=== PATIENT | male | born 1960 | race African-American/Black ===

== ENCOUNTER 2021-08-29 21:38 | Inpatient (IN) | payer BC ==
[2021-08-29 22:22] LABS: Hemoglobin 10.2 g/dL (13.5-17.5); Mean Corpuscular HGB CONC 31.4 g/dL (32.0-36.0); Mean Corpuscular Hemoglobin 25.8 pg (27.0-33.0); Mean Corpuscular Volume 82.3 fl (81.2-95.1); Mean Platelet Volume 11.6 fl (7.4-10.4); Platelet Count 259 10x3/uL (150-450); RBC Distribution Width 16.3 % (11.5-14.5); Red Blood Cell (RBC) Count 3.95 10x6/uL (4.32-5.72); White Blood Cell (WBC) Count 16.1 10x3/uL (3.5-10.5)
[2021-08-29 22:32] LABS: ALT (SGPT) 21 U/L (8-55); AST (SGOT) 28 U/L (5-34); Albumin 2.4 g/dL (3.4-4.8); Alkaline Phosphatase 63 U/L (40-110); Anion Gap 20 mmol/L (10-20); Bilirubin, Total 0.3 mg/dL (0.2-1.2); CK (CPK) 1000 U/L (30-200); Calc. Creatinine Clearance 0 mL/min (70-130); Calcium 7.7 mg/dL (7.8-10.44); Carbon Dioxide 14 mmol/L (23-31); Chloride 105 mmol/L (98-107); Estimated GFR 4; Globulin 2.9 g/dL (2.4-3.5); Glucose 373 mg/dL (80-115); Lipase 31 U/L (8-78); Protein, Total 5.3 g/dL (5.8-8.1); Sodium 132 mmol/L (136-145)
[2021-08-29 22:34] LABS: Potassium 7.3 mmol/L (3.5-5.1)
[2021-08-29 22:41] LABS: BUN (Urea Nitrogen) 158 mg/dL (8.4-25.7)
[2021-08-29 22:55] LABS: CKMB 23.2 ng/mL (0-6.6)
[2021-08-29 22:59] LABS: MDiff Complete? YES
[2021-08-29 23:02] LABS: Band 24 % (5-11); Lymphocytes 5 % (21-51); Monocytes 9 % (0-10); Neutrophil 62 % (42-75)
[2021-08-29 23:03] LABS: Platelet Morphology Comment Appears Adequate; RBC Morphology Normal
[2021-08-29 23:06] LABS: Actual Bicarbonate (HCO3v) 12 mEq/L (22-28); Base Excess -14.9 mEq/L (-2.0 to +3.0); Calcium, Ionized (venous) 1.15 mmol/L (1.16-1.32); Chloride (VBG) 115 mmol/L (98-106); Critical Notified Whom: SPOMI; Hemoglobin (Hb) 10.5 g/dL (13.1-17.2); Potassium (VBG) 7.87 mmol/L (3.70-5.30); Puncture Site Other Site; Sodium 144.3 mmol/L (133-146); pH (venous) 7.19 (7.32-7.43)
[2021-08-29] MEDS ORDERED: Calcium Chloride 1 GM/10 ML Abboject SYRINGE ONE (23:14)
[2021-08-29] MEDS ORDERED: Sodium Bicarb 50 MEQ/50 ML VIAL ONE (23:15)
[2021-08-29] MEDS ORDERED: Insulin Regular 300 UNITS/3 ML VIAL ONE (23:15)
[2021-08-29 23:26] LABS: SARS-CoV-2 NAA Rapid Test DETECTED (NotDetected)
[2021-08-29] MEDS ORDERED: Pantoprazole 40 MG VIAL ONE (23:44)
[2021-08-29] MEDS ORDERED: Cefepime 2 GM VIAL ONE (23:44)
[2021-08-30 00:50] LABS: Hemoglobin 9.5 g/dL (13.5-17.5); Platelet Count 202 10x3/uL (150-450)
[2021-08-30] MEDS ORDERED: Ondansetron PF 4 MG/2 ML Vial IVP PRN (00:58)
[2021-08-30 01:14] LABS: BUN (Urea Nitrogen) 179 mg/dL (8.4-25.7); Magnesium 2.7 mg/dL (1.6-2.6)
[2021-08-30 01:21] LABS: Troponin I 0.063 ng/mL (< 0.028)
[2021-08-30 01:29] LABS: Phosphorus 9.6 mg/dL (2.3-4.7)
[2021-08-30 01:30] LABS: Anion Gap 25 mmol/L (10-20); Calc. Creatinine Clearance 0 mL/min (70-130); Calcium 10.3 mg/dL (7.8-10.44); Carbon Dioxide 18 mmol/L (23-31); Chloride 116 mmol/L (98-107); Estimated GFR 4; Glucose 373 mg/dL (80-115); Potassium 6.8 mmol/L (3.5-5.1); Sodium 152 mmol/L (136-145)
[2021-08-30 01:36] LABS: Hep B Surf Ag Non-Reactive S/CO (NonReactive)
[2021-08-30 01:41] VITALS: BMI 18.1
[2021-08-30 02:00] LABS: HBSAg Index 0.18 S/CO (0-0.99)
[2021-08-30] MEDS ORDERED: Sodium Chloride 0.9% 1,000 ML IV SCH (02:00)
[2021-08-30] MEDS ORDERED: Pantoprazole 40 MG VIAL IVP SCH (02:00)
[2021-08-30] MEDS: Pantoprazole 80 MG, Admixture Fee 1 EACH in Sodium Chloride 0.9% 100 ML IVPB SCH ×3 (02:30→13:47)
[2021-08-30] MEDS: niCARdipine 25 MG in Sodium Chloride 0.9% 250 ML 250 ML IVPB SCH ×2 (02:53→11:11)
[2021-08-30] MEDS: INSULIN REGULAR IVPB SCH (02:53)
[2021-08-30] MEDS: NACL IVPB SCH (02:53)
[2021-08-30] MEDS ORDERED: Haloperidol Lactate 5 MG/ML VIAL SLOW IVP SCH (03:15)
[2021-08-30 04:27] LABS: Actual Bicarbonate (HCO3a) 14.8 mEq/L (22-28); Base Excess (BEa) -10.2 mEq/L (-2.0 to +3.0); CO2 Tension 29.8 mmHg (35.0-45.0); Calcium, Ionized (arterial) 1.21 mmol/L (1.12-1.30); Carboxyhemoglobin (COHb) 0.3 gm% (0.0-3.0); Hemoglobin (Hb) 9.7 g/dL (14.0-18.0); O2 Tension (PaO2), arterial 96.6 mmHg (> 80.0); Potassium - ABG Lab 4.7 mmol/L (3.70-5.30); Puncture Site RRA; pH, Arterial 7.31 (7.35-7.45)
[2021-08-30 04:32] LABS: Lactic Acid 3.6 mmol/L (0.5-2.2)
[2021-08-30 06:04] LABS: Anion Gap 23 mmol/L (10-20); CK (CPK) 787 U/L (30-200); Calc. Creatinine Clearance 5 mL/min (70-130); Calcium 8.9 mg/dL (7.8-10.44); Carbon Dioxide 16 mmol/L (23-31); Chloride 116 mmol/L (98-107); Estimated GFR 4; Glucose 460 mg/dL (80-115); Magnesium 2.4 mg/dL (1.6-2.6); Potassium 5.4 mmol/L (3.5-5.1); Sodium 150 mmol/L (136-145)
[2021-08-30 06:15] LABS: BUN (Urea Nitrogen) 161 mg/dL (8.4-25.7)
[2021-08-30 06:45] LABS: #Neutrophils 3.5 10x3/uL (1.5-8.4); %Neutrophils 75.5 % (40.0-75.0); Hemoglobin 9.8 g/dL (13.5-17.5); Mean Corpuscular HGB CONC 31.1 g/dL (32.0-36.0); Mean Corpuscular Hemoglobin 25.5 pg (27.0-33.0); Mean Corpuscular Volume 81.8 fl (81.2-95.1); Mean Platelet Volume 10.7 fl (7.4-10.4); Platelet Count 173 10x3/uL (150-450); RBC Distribution Width 16.5 % (11.5-14.5); Red Blood Cell (RBC) Count 3.85 10x6/uL (4.32-5.72); White Blood Cell (WBC) Count 4.6 10x3/uL (3.5-10.5)
[2021-08-30 06:53] LABS: MDiff Complete? YES
[2021-08-30] MEDS ORDERED: Dextrose 5% in Water 1,000 ML IV SCH ×2 (07:15→16:16)
[2021-08-30 07:51] LABS: Band 29 % (5-11); Lymphocytes 10 % (21-51); Metamyelocyte 1 % (0-0); Monocytes 4 % (0-10); Myelocyte 1 % (0-0); Neutrophil 55 % (42-75)
[2021-08-30 07:53] LABS: Platelet Morphology Comment Appears Adequate
[2021-08-30 07:57] LABS: Anisocytosis SLIGHT = 6-15 cells (100X) (0-5/hpf); Hypochromia SLIGHT = 6-15 cells (100X) (0-5/hpf); Rouleaux Formation SLIGHT = 1-5 cells (100X) (None Seen)
[2021-08-30] MEDS: Heparin 5,000 UNITS/ML VIAL SC SCH ×3 (09:03→20:24)
[2021-08-30] MEDS ORDERED: Sodium Chloride 0.9% 250 ML 250 ML ONE (11:12)
[2021-08-30] MEDS ORDERED: Lactated Ringer's 500 ML IV SCH (12:30)
[2021-08-30 13:29] LABS: HBSAB Concentration Less than 8.00 mIU/mL; Hep B Core Total Ab Non-Reactive (NonReactive); Hep B Core Total Index 0.05 S/CO (0-0.79); Hep B Surf AB Non-Reactive (NonReactive); Hep C IgG Ab Non-Reactive (NonReactive); Hep C Index 0.08 S/CO (0-0.79)
[2021-08-30] MEDS ORDERED: Dextrose 5% in Water 1,000 ML IV PRN (15:14)
[2021-08-30 15:35] LABS: Anion Gap 20 mmol/L (10-20); Calc. Creatinine Clearance 6 mL/min (70-130); Calcium 8.9 mg/dL (7.8-10.44); Carbon Dioxide 21 mmol/L (23-31); Chloride 116 mmol/L (98-107); Estimated GFR 5; Glucose 83 mg/dL (80-115); Potassium 4.7 mmol/L (3.5-5.1); Sodium 152 mmol/L (136-145)
[2021-08-30 15:44] LABS: Body Fluid Source Dialysate Fluid; Tube # EDTA
[2021-08-30 15:45] LABS: BUN (Urea Nitrogen) 135 mg/dL (8.4-25.7)
[2021-08-30 15:45] LABS: Clarity Cloudy/Turbid (Clear)
[2021-08-30 15:46] LABS: BF Color White
[2021-08-30] MEDS: Dextrose 50% Abboject 50 ML SYRINGE SLOW IVP PRN (16:19)
[2021-08-30 16:37] LABS: BF Segmented Neutrophils 93 %; Cell Count Non Hematic 4 %; Lymphocytes 3 %
[2021-08-30 19:37] LABS: Hemoglobin A1c 8.7 % (4.0-6.0)
[2021-08-30] MEDS: Pantoprazole 40 MG VIAL IVP SCH (20:25)
[2021-08-30] MEDS: HumaLOG 300 UNITS/3 ML VIAL SC PRN ×2 (20:26→23:43)
[2021-08-31] MEDS: niCARdipine 25 MG in Sodium Chloride 0.9% 250 ML 250 ML IVPB SCH (00:42)
[2021-08-31] MEDS: HumaLOG 300 UNITS/3 ML VIAL SC PRN ×4 (04:16→21:01)
[2021-08-31 04:21] LABS: Anion Gap 20 mmol/L (10-20); BUN (Urea Nitrogen) 123 mg/dL (8.4-25.7); Calc. Creatinine Clearance 6 mL/min (70-130); Calcium 8.4 mg/dL (7.8-10.44); Carbon Dioxide 19 mmol/L (23-31); Chloride 110 mmol/L (98-107); Estimated GFR 6; Glucose 388 mg/dL (80-115); Sodium 145 mmol/L (136-145)
[2021-08-31 04:29] LABS: Hemoglobin 9.2 g/dL (13.5-17.5); Mean Corpuscular HGB CONC 31.8 g/dL (32.0-36.0); Mean Corpuscular Hemoglobin 25.4 pg (27.0-33.0); Mean Corpuscular Volume 79.8 fl (81.2-95.1); Mean Platelet Volume 11.9 fl (7.4-10.4); Platelet Count 206 10x3/uL (150-450); RBC Distribution Width 16.3 % (11.5-14.5); Red Blood Cell (RBC) Count 3.62 10x6/uL (4.32-5.72); White Blood Cell (WBC) Count 9.6 10x3/uL (3.5-10.5)
[2021-08-31] MEDS: Heparin 5,000 UNITS/ML VIAL SC SCH ×3 (08:05→21:00)
[2021-08-31] MEDS: Pantoprazole 40 MG VIAL IVP SCH ×2 (08:06→21:00)
[2021-08-31] MEDS ORDERED: Pantoprazole 40 MG VIAL IVP SCH (09:00)
[2021-08-31] MEDS: INSULIN REGULAR IVPB SCH (09:12)
[2021-08-31] MEDS: NACL IVPB SCH (09:12)
[2021-08-31] MEDS ORDERED: GENTAMICIN FS SCH ×2 (12:00)
[2021-08-31] MEDS ORDERED: HEPARIN FS SCH ×2 (12:00)
[2021-08-31] MEDS ORDERED: [UNRECOGNIZED DRUG - OTHER] FS SCH (12:00)
[2021-08-31] MEDS ORDERED: CEFAZOLIN FS SCH ×2 (12:00)
[2021-08-31] MEDS ORDERED: [UNRECOGNIZED DRUG - OTHER] FS SCH (12:00)
[2021-08-31] MEDS ORDERED: Amlodipine 10 MG TAB PO SCH (13:00)
[2021-08-31] MEDS ORDERED: Heparin 10,000 UNITS/ 10 ML VIAL FS PRN (13:21)
[2021-08-31] MEDS ORDERED: Lantus 1000 UNITS/10 ML VIAL SC SCH (15:00)
[2021-08-31] MEDS ORDERED: Vancomycin 1 GM in Premix Bag 1 BAG IVPB PRN (23:30)
[2021-09-01] MEDS: hydrALAZINE 20 MG/ML VIAL SLOW IVP PRN ×2 (00:12→10:44)
[2021-09-01] MEDS: HumaLOG 300 UNITS/3 ML VIAL SC PRN ×4 (00:12→21:45)
[2021-09-01] MEDS: Cefepime 2 GM in Sodium Chloride 0.9% 100 ML IVPB SCH (00:13)
[2021-09-01 05:26] LABS: Anion Gap 16 mmol/L (10-20); BUN (Urea Nitrogen) 92 mg/dL (8.4-25.7); Calc. Creatinine Clearance 8 mL/min (70-130); Calcium 8.5 mg/dL (7.8-10.44); Carbon Dioxide 26 mmol/L (23-31); Chloride 104 mmol/L (98-107); Estimated GFR 8; Glucose 405 mg/dL (80-115); Potassium 3.8 mmol/L (3.5-5.1); Sodium 142 mmol/L (136-145)
[2021-09-01] MEDS: Pantoprazole 40 MG VIAL IVP SCH (08:53)
[2021-09-01] MEDS: cloNIDine 0.1 MG TAB PO SCH ×2 (08:53→20:56)
[2021-09-01] MEDS: Amlodipine 10 MG TAB PO SCH (08:53)
[2021-09-01] MEDS: Heparin 5,000 UNITS/ML VIAL SC SCH ×3 (08:53→20:57)
[2021-09-01 12:53] LABS: Vancomycin, Random 15.1 ug/mL (See Comment)
[2021-09-01] MEDS: hydrALAZINE 25 MG TAB PO SCH ×2 (13:58→20:56)
[2021-09-01] MEDS ORDERED: Vancomycin HCl 500 MG in Sodium Chloride 0.9% 100 ML IVPB SCH (14:00)
[2021-09-01] MEDS: Carvedilol 25 MG TAB PO SCH (16:31)
[2021-09-01] MEDS: Lantus 1000 UNITS/10 ML VIAL SC SCH (20:57)
[2021-09-02] MEDS: HumaLOG 300 UNITS/3 ML VIAL SC PRN ×3 (00:09→09:00)
[2021-09-02] MEDS: Heparin 5,000 UNITS/ML VIAL SC SCH ×3 (08:54→21:05)
[2021-09-02] MEDS: Carvedilol 25 MG TAB PO SCH ×2 (08:55→17:59)
[2021-09-02] MEDS: Amlodipine 10 MG TAB PO SCH (08:55)
[2021-09-02] MEDS: cloNIDine 0.1 MG TAB PO SCH ×2 (08:56→20:00)
[2021-09-02] MEDS: Lantus 1000 UNITS/10 ML VIAL SC SCH (08:59)
[2021-09-02] MEDS: hydrALAZINE 25 MG TAB PO SCH ×3 (09:12→21:08)
[2021-09-03] MEDS: Lantus 1000 UNITS/10 ML VIAL SC SCH ×3 (00:10→20:27)
[2021-09-03] MEDS: Cefepime 2 GM in Sodium Chloride 0.9% 100 ML IVPB SCH (00:10)
[2021-09-03 04:58] LABS: Hemoglobin 9.4 g/dL (13.5-17.5); Mean Corpuscular HGB CONC 30.4 g/dL (32.0-36.0); Mean Corpuscular Hemoglobin 25.6 pg (27.0-33.0); Mean Corpuscular Volume 84.2 fl (81.2-95.1); Mean Platelet Volume 11.8 fl (7.4-10.4); Platelet Count 299 10x3/uL (150-450); RBC Distribution Width 15.2 % (11.5-14.5); Red Blood Cell (RBC) Count 3.67 10x6/uL (4.32-5.72); White Blood Cell (WBC) Count 12.3 10x3/uL (3.5-10.5)
[2021-09-03 05:02] LABS: Anion Gap 14 mmol/L (10-20); BUN (Urea Nitrogen) 76 mg/dL (8.4-25.7); Calc. Creatinine Clearance 8 mL/min (70-130); Calcium 8.2 mg/dL (7.8-10.44); Carbon Dioxide 27 mmol/L (23-31); Chloride 104 mmol/L (98-107); Estimated GFR 8; Glucose 337 mg/dL (80-115); Potassium 3.5 mmol/L (3.5-5.1); Sodium 141 mmol/L (136-145)
[2021-09-03] MEDS: HumaLOG 300 UNITS/3 ML VIAL SC PRN ×2 (06:31→11:34)
[2021-09-03] MEDS: hydrALAZINE 25 MG TAB PO SCH ×3 (08:43→20:30)
[2021-09-03] MEDS: Heparin 5,000 UNITS/ML VIAL SC SCH ×3 (08:43→20:28)
[2021-09-03] MEDS: cloNIDine 0.1 MG TAB PO SCH ×2 (08:43→20:30)
[2021-09-03] MEDS: Amlodipine 10 MG TAB PO SCH (08:43)
[2021-09-03] MEDS: Carvedilol 25 MG TAB PO SCH ×2 (08:43→16:06)
[2021-09-03 13:21] LABS: Vancomycin, Random 15.7 ug/mL (See Comment)
[2021-09-03] MEDS ORDERED: Vancomycin HCl 500 MG in Sodium Chloride 0.9% 100 ML IVPB SCH (13:30)
[2021-09-03] MEDS: Dextrose 50% Abboject 50 ML SYRINGE SLOW IVP PRN (16:22)
[2021-09-03] MEDS ORDERED: Vancomycin 1 GM in Premix Bag 1 BAG IVPB SCH (23:30)
[2021-09-04] MEDS: Cefepime 1 GM in Sodium Chloride 0.9% 100 ML IVPB SCH ×2 (00:12→23:33)
[2021-09-04] MEDS: HumaLOG 300 UNITS/3 ML VIAL SC PRN ×5 (00:32→23:34)
[2021-09-04] MEDS: Heparin 5,000 UNITS/ML VIAL SC SCH ×3 (08:22→20:30)
[2021-09-04] MEDS: cloNIDine 0.1 MG TAB PO SCH ×2 (08:23→20:33)
[2021-09-04] MEDS: hydrALAZINE 25 MG TAB PO SCH ×3 (08:23→20:32)
[2021-09-04] MEDS: Amlodipine 10 MG TAB PO SCH (08:23)
[2021-09-04] MEDS: Carvedilol 25 MG TAB PO SCH ×2 (08:23→16:16)
[2021-09-04] MEDS: Lantus 1000 UNITS/10 ML VIAL SC SCH ×2 (08:24→20:31)
[2021-09-05 03:57] LABS: Anion Gap 14 mmol/L (10-20); BUN (Urea Nitrogen) 70 mg/dL (8.4-25.7); Calc. Creatinine Clearance 7 mL/min (70-130); Calcium 8.3 mg/dL (7.8-10.44); Carbon Dioxide 27 mmol/L (23-31); Chloride 103 mmol/L (98-107); Estimated GFR 6; Glucose 220 mg/dL (80-115); Potassium 3.3 mmol/L (3.5-5.1); Sodium 141 mmol/L (136-145)
[2021-09-05] MEDS: HumaLOG 300 UNITS/3 ML VIAL SC PRN (05:29)
[2021-09-05] MEDS ORDERED: Potassium Chloride 20 MEQ in Premix Bag 1 BAG IVPB SCH (05:30)
[2021-09-05] MEDS: hydrALAZINE 25 MG TAB PO SCH ×3 (07:44→20:52)
[2021-09-05] MEDS: cloNIDine 0.1 MG TAB PO SCH ×2 (07:44→20:52)
[2021-09-05] MEDS: Lantus 1000 UNITS/10 ML VIAL SC SCH ×2 (07:45→20:53)
[2021-09-05] MEDS: Amlodipine 10 MG TAB PO SCH (07:45)
[2021-09-05] MEDS: Carvedilol 25 MG TAB PO SCH ×2 (07:45→17:38)
[2021-09-05] MEDS: Heparin 5,000 UNITS/ML VIAL SC SCH ×3 (07:46→20:54)
[2021-09-05] MEDS ORDERED: Iopamidol 300 61% 100 ML VIAL FS ONE (08:00)
[2021-09-05] MEDS ORDERED: EPOETIN ALFA-EPBX (ESRD) 4,000 UNIT/ML VIAL SC SCH (10:00)
[2021-09-05 13:00] LABS: Vancomycin, Random 18.4 ug/mL (See Comment)
[2021-09-05] MEDS ORDERED: Vancomycin HCl 500 MG in Sodium Chloride 0.9% 100 ML IVPB SCH (13:30)
[2021-09-05] MEDS: Dextrose 50% Abboject 50 ML SYRINGE SLOW IVP PRN (20:51)
[2021-09-05] MEDS: Cefepime 1 GM in Sodium Chloride 0.9% 100 ML IVPB SCH (23:07)
[2021-09-06 04:38] LABS: Anion Gap 17 mmol/L (10-20); BUN (Urea Nitrogen) 67 mg/dL (8.4-25.7); Calc. Creatinine Clearance 6 mL/min (70-130); Carbon Dioxide 26 mmol/L (23-31); Chloride 103 mmol/L (98-107); Estimated GFR 6; Glucose 256 mg/dL (80-115); Potassium 3.6 mmol/L (3.5-5.1); Sodium 142 mmol/L (136-145)
[2021-09-06] MEDS: HumaLOG 300 UNITS/3 ML VIAL SC PRN ×2 (06:35→17:03)
[2021-09-06] MEDS: hydrALAZINE 25 MG TAB PO SCH ×3 (08:42→16:57)
[2021-09-06] MEDS: cloNIDine 0.1 MG TAB PO SCH ×2 (09:00→09:53)
[2021-09-06] MEDS ORDERED: Potassium Chloride 20 MEQ TAB PO SCH (09:30)
[2021-09-06] MEDS: Amlodipine 10 MG TAB PO SCH (09:53)
[2021-09-06] MEDS: Carvedilol 25 MG TAB PO SCH ×2 (09:54→16:59)
[2021-09-06] MEDS: Heparin 5,000 UNITS/ML VIAL SC SCH ×3 (10:04→20:34)
[2021-09-06] MEDS: Lantus 1000 UNITS/10 ML VIAL SC SCH ×2 (10:04→20:32)
[2021-09-07] MEDS: Cefepime 1 GM in Sodium Chloride 0.9% 100 ML IVPB SCH (00:27)
[2021-09-07] MEDS: hydrALAZINE 25 MG TAB PO SCH ×3 (00:29→17:44)
[2021-09-07] MEDS: cloNIDine 0.1 MG TAB PO SCH ×2 (00:29→08:41)
[2021-09-07 04:53] LABS: Anion Gap 14 mmol/L (10-20); BUN (Urea Nitrogen) 63 mg/dL (8.4-25.7); Calc. Creatinine Clearance 6 mL/min (70-130); Calcium 8.8 mg/dL (7.8-10.44); Carbon Dioxide 28 mmol/L (23-31); Chloride 104 mmol/L (98-107); Estimated GFR 5; Glucose 177 mg/dL (80-115); Potassium 3.8 mmol/L (3.5-5.1); Sodium 142 mmol/L (136-145)
[2021-09-07] MEDS: HumaLOG 300 UNITS/3 ML VIAL SC PRN (06:21)
[2021-09-07] MEDS: Heparin 5,000 UNITS/ML VIAL SC SCH ×2 (08:43→17:44)
[2021-09-07] MEDS: Carvedilol 25 MG TAB PO SCH ×2 (09:10→17:44)
[2021-09-07] MEDS: Lantus 1000 UNITS/10 ML VIAL SC SCH (09:10)
[2021-09-07] MEDS: Amlodipine 10 MG TAB PO SCH (09:10)
[2021-09-07] MEDS ORDERED: PERIT DIALYSIS NO 6 IVPB SCH ×2 (10:15→21:00)
[2021-09-07] MEDS ORDERED: VANCOMYCIN HCL IVPB SCH ×2 (10:15→21:00)
[2021-09-07] MEDS ORDERED: DEX IVPB SCH ×2 (10:15→21:00)
[2021-09-07 10:31] VITALS: BP 133/62; TEMP 98.8
[2021-09-07 12:42] LABS: Vancomycin, Random 25.8 ug/mL (See Comment)
[2021-09-07 13:33] LABS: Body Fluid Source Dialysate Fluid; Clarity Clear (Clear); Tube # 1
[2021-09-07 13:34] LABS: BF Color Colorless
[2021-09-07 13:57] LABS: Lymphocytes 36 %
[2021-09-07 13:59] LABS: BF Segmented Neutrophils 20 %; Cell Count Non Hematic 44 %
[2021-09-12] MEDS ORDERED: Vancomycin HCl 1 GM in PERIT. DIALYSIS NO.6-1.5 % DEX 2,000 ML IVPB SCH ×2 (09:00→21:00)
== END 2021-09-07 19:30 | disposition home or self-care (01) | DRG 871 ==
LOC: CSHERS 21:38 → CSHIMCU 23:33 → UNDOADMIN 08-30 00:49 → CSHIMCU 08-30 00:49 → CSHTELE 09-05 16:47
PROVIDERS: ADMIT Family Medicine; ATTEND Internal Medicine
PROC: 3E03329 Introduction of Other Anti-infective into Peripheral Vein, Percutaneous Approach (ICD-10-PCS; 2021-08-29)
PROC: 06HY33Z Insertion of Infusion Device into Lower Vein, Percutaneous Approach (ICD-10-PCS; principal; 2021-08-30)
PROC: 3E1M39Z Irrigation of Peritoneal Cavity using Dialysate, Percutaneous Approach (ICD-10-PCS; 2021-09-06)
DX: A41.9 Sepsis, unspecified organism (principal); N18.6 End stage renal disease; U07.1 COVID-19; K65.9 Peritonitis, unspecified; J12.82 Pneumonia due to coronavirus disease 2019; G92.8 Other toxic encephalopathy; M62.82 Rhabdomyolysis; I12.0 Hypertensive chronic kidney disease with stage 5 chronic kidney disease or end stage renal disease; I16.9 Hypertensive crisis, unspecified; I16.1 Hypertensive emergency; E87.2 Acidosis; E87.1 Hypo-osmolality and hyponatremia; R13.10 Dysphagia, unspecified; K72.90 Hepatic failure, unspecified without coma; E11.22 Type 2 diabetes mellitus with diabetic chronic kidney disease; E78.5 Hyperlipidemia, unspecified; Z96.641 Presence of right artificial hip joint; E87.5 Hyperkalemia; E11.65 Type 2 diabetes mellitus with hyperglycemia; E11.649 Type 2 diabetes mellitus with hypoglycemia without coma; D63.1 Anemia in chronic kidney disease; Z99.2 Dependence on renal dialysis
CPT/HCPCS: 36415; 36416; 36600; 70450; 71045; 74177; 76705; 80048; 80053; 80202; 82010; 82140; 82274; 82550; 82553; 82805; 83036; 83605; 83690; 83735; 83880; 84100; 84443; 84484; 85014; 85018; 85025; 85027; 85049; 86704; 86850; 86900; 86901; 87040; 87070; 87149; 87205; 87340; 89051; 90935; 90945; 93005; 93010; 96365; 96367; 96375; C9113; G0257; J0360; J0690; J0692; J1580; J1630; J1644; J1815; J3370; J3480; J3490; J7050; J7070; J7120; J7999; Q5105; Q9967; U0002